=== PATIENT | male | born 1995 | race Caucasian/White ===

== ENCOUNTER 2016-05-18 15:34 | Emergency (ER) | payer BC ==
--- NOTE | 2016-05-18 16:11 | Emergency Department Record ---
History of Present Illness - General Chief Complaint: Abdominal Pain Stated Complaint: left abd pain Time Seen by Provider: 05/18/16 16:10 Source: Patient Mode of Arrival: Ambulatory Limitations: No limitations - History of Present Illness Initial Comments: The patient is here due to a one day hx of L sided AP. The pain is sharp and stabbing and mostly constant. He has had some mild nausea with the pain and loose stools but no vomiting. The patient is very weak and feels dehydrated. He has no hx of similar issues and no hx of abdominal surgeries. MD Complaint: Abdominal pain Onset/Timin -: Days(s) Location: L Flank, LLQ Radiation: L flank, LLQ Migration to: L Flank, LLQ Severity: Moderate Quality: Sharp Consistency: Constant Improves With: Nothing Worsens With: Nothing Associated Symptoms: Nausea - Related Data Home Medications Medication Instructions Recorded Confirmed Last Taken No Home Med [NO HOME MEDS] 06/19/15 05/18/16 Unknown Omeprazole 20 mg PO QD cap 10/15/15 05/18/16 05/18/16 Allergies Allergy/AdvReac Type Severity Reaction Status Date / Time No Known Drug Allergies Allergy Unknown Verified 05/18/16 16:06 [NO KNOWN DRUG ALLERGIES] Travel Screening - Travel/Exposure Within Last 30 Days Have you traveled within the last 30 days?: No Review of Systems Constitutional: Denies: Chills, Fever Eyes: Denies: Eye discharge ENT: Denies: Congestion Respiratory: Denies: Cough, Dyspnea Cardiovascular: Denies: Arrhythmia, Chest pain Past Medical History - SOCIAL HISTORY Smoking Status: Never smoker Alcohol Use: None Drug Use: None - RESPIRATORY Hx Respiratory Disorders: No - CARDIOVASCULAR Hx Cardio Disorders: No - NEURO Hx Neuro Disorders: No - GI Hx GI Disorders: Yes Hx Reflux: Yes - Hx Genitourinary Disorders: No - ENDOCRINE Hx Endocrine Disorders: No - MUSCULOSKELETAL Hx Musculoskeletal Disorders: No - PSYCH Hx Psych Problems: No - HEMATOLOGY/ONCOLOGY Hx Hematology/Oncology Disorders: No Family Medical History Any Significant Family History?: No Physical Exam - General General Appearance: Alert, Oriented x3, Cooperative, No acute distress - Head Head exam: Atraumatic, Normocephalic, Normal inspection - Eye Eye exam: Normal appearance, PERRL - Neck Neck exam: Normal inspection, Full ROM. negative: Tenderness - Respiratory Respiratory exam: Normal lung sounds bilaterally. negative: Respiratory distress - Cardiovascular Cardiovascular Exam: Regular rate, Normal rhythm, Normal heart sounds - GI/Abdominal GI/Abdominal exam: Soft, Tenderness (The abdomen is very soft with mild L sided upper and lower abdominal tenderness.). negative: Rebound, Rigid - exam: Circumcision. negative: Scrotal swelling, Testicular tenderness - Neurological Neurological exam: Normal gait. negative: Abnormal gait Course Vital Signs 05/18/16 15:42 Temperature 97.5 F L Pulse Rate [ 43 L Pulse Ox Probe] Respiratory 12 Rate Blood Pressure 112/66 [Left Arm] Pulse Ox 100 - Reevaluation(s) Reevaluation #1: The patient is resting comfortably at this time and denies any new issues. 05/18/16 17:42 Reevaluation #2: The patient is doing better at this time and his pain has mostly resolved. He denies any nausea or vomiting. On exam his abdomen is very soft with very minimal tenderness to the L mid abdomen. I did discuss the issues with the patient and felt his pain is most likely from constipation. He will bet a bottle of Mg Citrate for home and will return to the ER if not better tomorrow or sooner if worse. 05/18/16 18:25 Reevaluation #3: I did also discuss the patient's relative bradycardia and he states that is normal for him. I did stand the patient up and his HR did increase to 60 beats a minute. He states his HR is always low and I did confirm that with his old records. 05/18/16 18:29 Medical Decision Making - Data Complexity MDM Data: Labs Ordered and/or Reviewed, X-Ray Ordered and/or Reviewed - Lab Data Result diagrams: 05/18/16 16:32 05/18/16 16:32 - Radiology Data Radiology results: Report reviewed (AXR: Significant Constipation O/W neg.) Disposition Disposition: Discharge Clinical Impression: Abdominal pain in male Disposition: Home, Self-Care Condition: (1) Good Instructions: Constipation (ED), Abdominal Pain (ED) Additional Instructions: Please use Tylenol for pain and take 1/2 the bottle of Mg Citrate tonight and 1/ 2 tomorrow morning. Please see your PCP this week for recheck if needed. Please return to the ER for any persistent or increased pain, fever, or vomiting. Forms: Patient Portal Access Time of Disposition: 18:28
[2016-05-18] MEDS ORDERED: 0.9 % SODIUM CHLORIDE 1,000 ML BAG IV ONE ×2 (16:15→17:34)
[2016-05-18 16:48] LABS: BASO % 0.4 % (0-6); EOS % 7.6 % (0-6); GRAN % 55.4 % (47-80); HEMATOCRIT 38.2 % (42.0-52.0); HEMOGLOBIN 13.1 gm/dl (14.0-18.0); LYMPH % 31.2 % (16-45); MEAN CELL VOLUME 91.6 fl (81-97); MEAN CORPUSCULAR HEMOGLOBIN 31.4 pg (27-33); MEAN CORPUSCULAR HGB CONC 34.3 g/dl (32-36); MONO % 5.4 % (0-9); PLATELET COUNT 193 K/uL (130-400); RED BLOOD COUNT 4.17 M/uL (4.40-5.70); RED CELL DISTRIBUTION WIDTH 12.4 % (11.5-14.5); WHITE BLOOD COUNT W/O DIFF 7.7 K/uL (4.2-12.2)
[2016-05-18 16:59] LABS: ALBUMIN 4.4 gm/dL (3.5-5.0); ALKALINE PHOSPHATASE 80 U/L (38-126); ALT/SGPT 38 U/L (21-72); ANION GAP 15.6 (7-16); AST/SGOT 39 U/L (17-59); BILIRUBIN,TOTAL 0.46 mg/dL (0.2-1.3); BLOOD UREA NITROGEN 15 mg/dL (9-20); CARBON DIOXIDE 24.4 mmol/L (22-30); CREATININE 0.7 mg/dL (0.66-1.25); EST GLOMERULAR FILTRATION RATE > 60 ml/min; GLUCOSE,RANDOM 84 mg/dL (70-110); LIPASE 248 U/L (23-300); TOTAL PROTEIN 7.1 gm/dL (6.3-8.2)
[2016-05-18] MEDS ORDERED: KETOROLAC 30 MG/ML VIAL IVP ONE (17:20)
[2016-05-18 18:10] LABS: URINE APPEARANCE CLEAR; URINE BILIRUBIN NEGATIVE (NEGATIVE); URINE BLOOD NEGATIVE (NEGATIVE); URINE COLOR YELLOW; URINE GLUCOSE (UA) NEGATIVE (NEGATIVE); URINE KETONE NEGATIVE (NEGATIVE); URINE LEUKOCYTE ESTERASE NEGATIVE (NEGATIVE); URINE NITRITE NEGATIVE (NEGATIVE); URINE PROTEIN NEGATIVE (NEGATIVE); URINE UROBILINOGEN 0.2 E.U./dL (0.20 - 1.00)
[2016-05-18] MEDS ORDERED: MAGNESIUM CITRATE 296 ML BTL PO ONE (18:28)
--- NOTE | 2016-05-21 07:32 | RADIOLOGY REPORT ---
EXAM: ABDOMEN, TWO VIEWS HISTORY: LEFT UPPER QUADRANT ABDOMINAL PAIN FOR TWO DAYS. TECHNIQUE: Two views of the abdomen were obtained. Comparison: None. FINDINGS: No free air. Abundant fecal material throughout the colon. Paucity of small bowel gas. No suspicious calcification. IMPRESSION: CONSTIPATION. JOB NUMBER: [id number] MTDD
[2016-05-21] MEDS ORDERED: DICYCLOMINE HCL 10 MG CAPSULE PO ONE (08:05)
== END 2016-05-18 18:37 | disposition home or self-care (01) ==
LOC: ER 15:34
DX: R10.32 Left lower quadrant pain (principal); R11.0 Nausea; R19.7 Diarrhea, unspecified; K59.00 Constipation, unspecified
CPT/HCPCS: 99284 ×2; 96374; 96361; 83690; 85025; 80076; 80048; 81003; 74000; J1885; 96360; 96375; J7030

== ENCOUNTER 2016-05-21 01:04 | Observation (INO) | payer BC ==
[2016-05-21] MEDS ORDERED: ONDANSETRON 4 MG ODT TABLET SL ONE (01:32)
[2016-05-21] MEDS ORDERED: HYOSCYAMINE SULFATE ODT 0.125 MG TAB.SUBL SL ONE (01:32)
--- NOTE | 2016-05-21 01:39 | Emergency Department Record ---
History of Present Illness - General Chief Complaint: Abdominal Pain Stated Complaint: ABDOMINAL PAIN Time Seen by Provider: 05/21/16 01:31 Source: Patient Mode of Arrival: Ambulatory Limitations: No limitations - History of Present Illness Initial Comments: 21 yo male returns to ED with worsening abdominal pain symptoms described as "cramping". Patient reports that he was diagnosed with constipation 2 days ago , given prescription for magnesium citrate which produced 2-3 BMs at home. Patient reports taking the "other half" of the bottle which did not result in any further bowel movements, but resulted in abdominal cramping tonight. Patient denies health problems at his baseline. Patient denies fevers, chills, or recent illness. MD Complaint: Abdominal pain Onset/Timin -: Days(s) Location: Diffuse, LLQ Radiation: Back Quality: Cramping Consistency: Intermittent Improves With: Bowel movement Worsens With: Nothing Associated Symptoms: Nausea - Related Data Home Medications Medication Instructions Recorded Confirmed Last Taken Omeprazole 40 mg PO QD cap 10/15/15 05/21/16 05/18/16 Allergies Allergy/AdvReac Type Severity Reaction Status Date / Time No Known Drug Allergies Allergy Unknown Verified 05/18/16 16:06 [NO KNOWN DRUG ALLERGIES] Travel Screening - Travel/Exposure Within Last 30 Days Have you traveled within the last 30 days?: No - Travel Symptoms Symptom Screening: None Review of Systems Constitutional: Denies: Chills, Fever, Malaise, Night sweats Eyes: Denies: Eye discharge, Eye pain ENT: Denies: Congestion, Ear pain, Epistaxis Respiratory: Denies: Cough, Dyspnea Cardiovascular: Denies: Chest pain, Dyspnea on exertion Endocrine: Denies: Fatigue, Heat or cold intolerance Gastrointestinal: Reports: Abdominal pain, Constipation, Nausea. Denies: Vomiting Genitourinary: Denies: Incontinence, Retention Musculoskeletal: Denies: Arthralgia, Back pain, Gout, Joint swelling Skin: Denies: Bruising, Change in color Neurological: Denies: Abnormal gait, Confusion, Headache, Seizure Psychiatric: Denies: Anxiety Hematological/Lymphatic: Denies: Anemia, Blood Clots Past Medical History - SOCIAL HISTORY Smoking Status: Never smoker - RESPIRATORY Hx Respiratory Disorders: Yes Hx Asthma: Yes (mostly as child) - CARDIOVASCULAR Hx Cardio Disorders: No - NEURO Hx Neuro Disorders: No - GI Hx GI Disorders: Yes Hx Reflux: Yes - Hx Genitourinary Disorders: No - ENDOCRINE Hx Endocrine Disorders: No - MUSCULOSKELETAL Hx Musculoskeletal Disorders: No - PSYCH Hx Psych Problems: No - HEMATOLOGY/ONCOLOGY Hx Hematology/Oncology Disorders: No Family Medical History Any Significant Family History?: Yes Hx Cancer: Grandparents Hx Heart Disease: Grandparents Hx HTN: Mother, Grandparents Hx Stroke: Brother/Sister, Grandparents *Stroke Comment: Aunt Physical Exam - General General Appearance: Alert, Oriented x3, Cooperative, Mild distress Limitations: No limitations - Head Head exam: Atraumatic, Normocephalic, Normal inspection Head exam detail: negative: Abrasion, Contusion, Dupont's sign, General tenderness, Hematoma, Laceration - Eye Eye exam: Normal appearance. negative: Conjunctival injection, Periorbital swelling, Periorbital tenderness, Scleral icterus - ENT Ear exam: negative: Auricular hematoma, Auricular trauma Nasal Exam: negative: Active bleeding, Discharge, Dried blood, Foreign body Mouth exam: negative: Drooling, Laceration, Muffled voice, Tongue elevation - Neck Neck exam: Normal inspection. negative: Meningismus, Tenderness - Respiratory Respiratory exam: Normal lung sounds bilaterally. negative: Respiratory distress, Rhonchi, Stridor, Wheezes - Cardiovascular Cardiovascular Exam: Normal rhythm, Normal heart sounds, Bradycardia, Other ( chronic bradycardia per patient and family) - GI/Abdominal GI/Abdominal exam: Soft. negative: Pulsatile mass, Rebound, Rigid, Tenderness - Rectal Rectal exam: Deferred - exam: Deferred - Extremities Extremities exam: Normal inspection. negative: Calf tenderness, Pedal edema, Tenderness - Back Back exam: Reports: Normal inspection. Denies: CVA tenderness (R), CVA tenderness (L) - Neurological Neurological exam: Alert, Normal gait, Oriented X3 - Psychiatric Psychiatric exam: Normal affect, Normal mood - Skin Skin exam: Normal color. negative: Abrasion Type of lesion: negative: abrasion Course Vital Signs 05/21/16 01:10 Temperature 97.7 F Pulse Rate [ 38 L Pulse Ox Probe] Respiratory 20 Rate Blood Pressure 126/78 [Left Arm] Pulse Ox 98 - Reevaluation(s) Reevaluation #1: 05/21/16 01:37 Labs reviewed from visit 05/18/16, no acute process. Abdominal film 05/18/16: Findings c/w constipation. CT imaging ordered to exclude other acute processes, Zofran and Levsin given for symptomatic cramping. Reevaluation #2: 05/21/16 03:17 CT Abdomen and Pelvis: No acute process Patient reassessed following Levsin, Zofran, and Toradol, reports that he has had no relief of his pain/cramping symptoms. Will administer Valium in the ED and admit for intractable abdominal pain for observation and further evaluation. Disposition Disposition: Admit Clinical Impression: Abdominal pain in male Disposition: Still a Patient at [facility] Decision to Admit: Admit from ER Decision to Admit Date: 05/21/16 Decision to Admit Time: 03:19 Condition: (2) Stable Forms: Patient Portal Access
[2016-05-21] MEDS ORDERED: 0.9 % SODIUM CHLORIDE 1000ML 1,000 ML IV SCH (01:45)
[2016-05-21] MEDS ORDERED: ONDANSETRON HCL IV 4 MG/2 ML VIAL IVP ONE (01:56)
[2016-05-21] MEDS ORDERED: KETOROLAC 30 MG/ML VIAL IVP ONE (02:40)
[2016-05-21] MEDS ORDERED: DIAZEPAM 5 MG/1 ML TUBX IVP ONE (03:17)
[2016-05-21] MEDS ORDERED: Non-Formulary MISC (Omeprazole [Omeprazole] 40 MG) PO SCH (03:40)
[2016-05-21] MEDS ORDERED: HYOSCYAMINE SULFATE ODT 0.125 MG TAB.SUBL SL PRN (03:40)
[2016-05-21] MEDS ORDERED: ONDANSETRON HCL IV 4 MG/2 ML VIAL IVP PRN (03:40)
[2016-05-21] MEDS ORDERED: 0.9 % SODIUM CHLORIDE 1000ML 1,000 ML IV PRN (03:40)
[2016-05-21] MEDS ORDERED: DIAZEPAM 5 MG/1 ML TUBX IVP PRN (03:40)
[2016-05-21] MEDS ORDERED: FLU VAC QS 2016-17 (INPT, 3YR+) 60MCG/0.5ML IM ONE (04:04)
[2016-05-21] MEDS ORDERED: PANTOPRAZOLE SODIUM 40 MG TABLET PO SCH (07:00)
[2016-05-21 08:18] LABS: URINE APPEARANCE CLEAR; URINE BILIRUBIN NEGATIVE (NEGATIVE); URINE BLOOD NEGATIVE (NEGATIVE); URINE COLOR YELLOW; URINE GLUCOSE (UA) NEGATIVE (NEGATIVE); URINE KETONE NEGATIVE (NEGATIVE); URINE LEUKOCYTE ESTERASE NEGATIVE (NEGATIVE); URINE NITRITE NEGATIVE (NEGATIVE); URINE PROTEIN NEGATIVE (NEGATIVE); URINE UROBILINOGEN 0.2 E.U./dL (0.20 - 1.00)
[2016-05-21 08:22] LABS: BARBITURATE SCREEN URINE NOT DETECTED; TRICYCLIC ANTIDEPRESSANT SCRN NOT DETECTED
[2016-05-21 08:23] LABS: AMPHETAMINE SCREEN URINE NOT DETECTED; BENZODIAZEPINE SCREEN URINE NOT DETECTED; COCAINE SCREEN URINE NOT DETECTED; METHADONE SCREEN URINE NOT DETECTED; METHAMPHETAMINE SCREEN NOT DETECTED; OPIATE SCREEN URINE NOT DETECTED; OXYCODONE SCREEN URINE NOT DETECTED; PHENCYCLIDINE SCREEN URINE NOT DETECTED; PROPOXYPHENE SCREEN URINE NOT DETECTED; THC SCREEN URINE NOT DETECTED
[2016-05-21] MEDS ORDERED: DICYCLOMINE HCL 10 MG CAPSULE PO ONE (08:31)
[2016-05-21 08:50] LABS: BASO % 0.6 % (0-6); EOS % 8.1 % (0-6); GRAN % 48.5 % (47-80); HEMATOCRIT 35.3 % (42.0-52.0); HEMOGLOBIN 12.3 gm/dl (14.0-18.0); LYMPH % 37.6 % (16-45); MEAN CELL VOLUME 91.5 fl (81-97); MEAN CORPUSCULAR HGB CONC 34.8 g/dl (32-36); MEAN PLATELET VOLUME 11.1 fl (7.4-10.4); MONO % 5.2 % (0-9); PLATELET COUNT 173 K/uL (130-400); RED BLOOD COUNT 3.86 M/uL (4.40-5.70); WHITE BLOOD COUNT W/O DIFF 5.4 K/uL (4.2-12.2)
[2016-05-21 08:51] LABS: MEAN CORPUSCULAR HEMOGLOBIN 31.8 pg (27-33)
--- NOTE | 2016-05-21 09:26 | Discharge Note ---
Discharge Note - Date Date of Discharge Note: 05/21/16 Disposition: Home, Self-Care Condition: (2) Stable Additional Instructions: follow up with Dr. Musa tomorrow as scheduled [place] diet Bananas rice applesauce rice and toast and crackers increase water to 8 glasses per day off work today and tomorrow Prescriptions: Dicyclomine HCl [Bentyl] 10 mg PO Q8H #20 cap Polyethylene Glycol 3350 [Miralax] 17 gm PO DAILY #1 bottle Forms: Patient Portal Access Activity at Discharge: Increase Activity as Tolerated
[2016-05-21] MEDS ORDERED: POLYETHYLENE GLY 17 GM PACKET PO SCH (10:00)
--- NOTE | 2016-05-21 10:31 | History and Physical Report ---
DATE OF DICTATION: 05/21/2016 at 8:15 a.m. CHIEF COMPLAINT: Abdominal pain, left lower quadrant. HISTORY OF PRESENT ILLNESS: This 21-year-old male presented. He states that he had recurrent abdominal pain, left lower quadrant. He was seen twice in the emergency department; first by Dr. Mack who diagnosed him with constipation. This was seen by x-ray and he was given citrate and mag, a half bottle. He had three or four bowel movements. He then took the other half of the bottle because he thought he was still having some discomfort. He had more cramping and came to the emergency room. He was evaluated by Dr. Chou and was admitted to the hospital for observation with intractable abdominal pain. At my evaluation at 7:30 a.m. he was sleeping. When I woke him up, he stated he did have left lower quadrant abdominal pain. His abdomen was soft and nontender on palpation, but the pain is present. His pain is in the left lower quadrant. No rigidity, no guarding, no rebound. He also mentioned that when he smoked marijuana his abdominal pain got better. The patient's primary physician is Dr. Wil Méndez. He has an appointment tomorrow with Dr. Méndez. He has a GI appointment with Dr. Matute in two weeks. PAST MEDICAL HISTORY: Negative. PAST SURGICAL HISTORY: Tonsillectomy and adenoidectomy. SOCIAL HISTORY: The patient is under a bit of stress because he is a little bit paranoid. His brother five years ago when he was 21 years old, and he currently is 21 years old. He stated his brother from a stroke. The patient was 16 years old when his brother . The anniversary of the of his brother was May 09. MEDICATIONS ON ADMISSION: Omeprazole 40 mg once a day. ALLERGIES: No known drug allergies. FAMILY/PSYCHOSOCIAL HISTORY: He smokes marijuana three or four times a week. He does not smoke cigarettes. No alcohol or illegal drug use. No significant family history. REVIEW OF SYSTEMS: HEENT: No upper respiratory infection symptoms, cough, cold, or congestion. Cardiovascular: No chest pain, palpitations, or arrhythmias. He does have a bradycardia. He has a history of bradycardia, and this has been documented in the chart. Respiratory: No cough, cold, or congestion. Gastrointestinal: See Chief Complaint. He has no vomiting and no diarrhea. However, he did have three or four bowel movements after using citrate of mag. No blood in the stools. No melanoma or hematochezia. No dysphagia. Genitourinary: No dysuria, hematuria, frequency, or burning on urination. Musculoskeletal: No joint or bone abnormalities. He does have some chronic back pain. 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 However, he also lifts weights, and he was lifting weights the last time he strained his back which was about three or four days ago at the gym. Neurologic: No cerebrovascular accident, paralysis, or paraesthesias. No loss of balance. Endocrine: No diabetes or thyroid disease. Integument: No rash, ulcers, changing moles, or yellow skin. PHYSICAL EXAMINATION: General: Height is 6 feet, 4 inches. Weight is 203 pounds. His BMI is 24. Vital Signs: Temperature is 97.9, pulse is 35, 34, 40. When he gets up, it goes up to 60. Blood pressure is 108/52, respiratory rate is 14, pulse oximetry is 98% on room air. HEENT: Pupils are equal, round, and reactive to light and accommodation. Extraocular muscles are intact. The throat is clear. The nose is clear. The tympanic membranes are [place]. Neck: The neck is supple. No jugular venous distension. No hepatojugular reflex. No carotid bruit. The thyroid is smooth. Cardiovascular: Regular rate and rhythm without murmurs, clicks, rubs, or gallops. Bradycardia is present. Respiratory: Clear to auscultation and percussion. Abdomen: Soft and nontender. No hepatosplenomegaly. No masses. No tenderness. Bowel sounds are active. Extremities: No pitting edema. No cyanosis. No clubbing. Full range of motion. Peripheral pulses are good. Breasts: Normal male breasts. Rectal Examination: Deferred. Genitalia: Normal male genitalia. Neurological Examination: Cranial nerves II through XII are intact. No gross defect. Sensation is normal. Strength is normal. Deep tendon reflexes are equal bilaterally. Babinski is negative. Mental Status: Alert and oriented times three. IMPRESSIONS: 1. Left lower quadrant abdominal pain; rule out irritable bowel syndrome. 2. Stress and anxiety from his brother having five years ago; anniversary date May 09. 3. Cramping from citrate of mag. 4. Bradycardia by history; rate is around 35. 5. Possible viral etiology for his abdominal pain. PLAN: Complete blood count, urinalysis, urine drug screen. Bentyl 10 mg p.o. The patient has an appointment with Dr. Méndez tomorrow and also with GI, Dr. Matute, in two weeks. Kel Navarrete D.O. Date Time JOB NUMBER: [id number] MTDD
--- NOTE | 2016-05-22 07:19 | CT SCAN REPORT ---
EXAM: ABDOMEN AND PELVIS CT WITH IV CONTRAST HISTORY: ACUTE LEFT LOWER QUADRANT ABDOMINAL PAIN FOR TWO DAYS. TECHNIQUE: Contiguous axial images from the lung bases to the symphysis pubis were obtained after the uneventful intravenous administration of 100 ml of Omnipaque 300. Oral contrast was also utilized. Comparison: Abdomen and pelvis CT 06/19/15. FINDINGS: The lung bases are clear. The liver, spleen, kidneys, adrenals, pancreas and gallbladder are normal. The visualized loops of small and large bowel are of normal caliber with no bowel wall thickening. Normal appendix. Moderate fecal material throughout the colon. No diverticulitis. No free intraperitoneal fluid or adenopathy. No lytic or blastic osseous lesion. IMPRESSION: NO ACUTE PROCESS OF THE ABDOMEN OR PELVIS. JOB NUMBER: [id number] [facility]
== END 2016-05-21 10:05 | disposition home or self-care (01) ==
LOC: ER 01:04 → MEDSURG 03:34
PROVIDERS: ADMIT Emergency Medicine; ATTEND Emergency Medicine
DX: R10.32 Left lower quadrant pain (principal); Z79.899 Other long term (current) drug therapy
CPT/HCPCS: 85025; 81003; 74177; 93005; 93010; G0378; G0477; Q9967; J1980; J1885; J2405; 96361; 96374; 96375; 99236; 99285; J3360; J7030

== ENCOUNTER 2016-10-12 15:07 | Emergency (ER) | payer BC ==
--- NOTE | 2016-10-12 16:13 | Emergency Department Record ---
History of Present Illness - General Chief complaint: Head Injury Stated complaint: HEAD INJURY Time Seen by Provider: 10/12/16 16:06 Source: Patient Mode of Arrival: Ambulatory - History of Present Illness Initial comments: Patient was drinking last night and not drinking water and using marijania and he felt lightheaded and he passed out when he was at his friends house and he had warning symptoms of tunneling down. No chest pain or dyspnea and he states he has a history of a slow heart rate all his life and his pulse now is 50. Onset/Timin -: Hour(s) Location: Occipital Loss of Consciousness: Yes, Second(s) Previous Trauma to this Area: No Place: Other Radiation: Neck, Other Severity scale (1-10): 6 Quality: Sharp Consistency: Constant Provoking factors: Other Associated Symptoms: Neck pain, Vision changes - Related Data Home Medications Medication Instructions Recorded Confirmed Last Taken Omeprazole 1 tab PO DAILY #30 09/01/16 10/12/16 10/11/16 Allergies/Adverse reactions: Allergies Allergy/AdvReac Type Severity Reaction Status Date / Time No Known Drug Allergies Allergy Unknown Unverified 10/12/16 15:39 [NO KNOWN DRUG ALLERGIES] gluten Allergy hives Unverified 10/12/16 15:39 nut - unspecified Allergy hives Unverified 10/12/16 15:39 soy Allergy hives Unverified 10/12/16 15:39 Travel Screening - Travel/Exposure Within Last 30 Days Have you traveled within the last 30 days?: No - Travel/Exposure Within Last Year Have you traveled outside the [place] in the last year?: No - Additonal Travel Details Have you been exposed to anyone with a communicable illness?: No - Travel Symptoms Symptom Screening: None Review of Systems Reviewed: No additional complaints except as noted below Constitutional: Reports: As per HPI. Denies: Chills, Fever, Malaise, Night sweats, Weakness, Weight change Eyes: Reports: As per HPI. Denies: Eye discharge, Eye pain, Photophobia, Vision change ENT: Reports: As per HPI. Denies: Congestion, Dental pain, Ear pain, Epistaxis , Hearing loss, Throat pain Respiratory: Reports: As per HPI. Denies: Cough, Dyspnea, Hemoptysis, Stridor, Wheezes Cardiovascular: Reports: As per HPI, Syncope. Denies: Arrhythmia, Chest pain, Dyspnea on exertion, Edema, Murmurs, Orthopnea, Palpitations, Paroxysmal nocturnal dyspnea, Rheumatic Fever Endocrine: Reports: As per HPI. Denies: Fatigue, Heat or cold intolerance, Polydipsia, Polyuria Gastrointestinal: Reports: As per HPI. Denies: Abdominal pain, Constipation, Diarrhea, Hematemesis, Hematochezia, Melena, Nausea, Vomiting Genitourinary: Reports: As per HPI. Denies: Dysuria, Frequency, Hematuria, Incontinence, Retention, Testicular pain, Testicular mass, Urgency Musculoskeletal: Reports: As per HPI. Denies: Arthralgia, Back pain, Gout, Joint swelling, Myalgia, Neck pain Skin: Reports: As per HPI. Denies: Bruising, Change in color, Change in hair/ nails, Lesions, Pruritus, Rash Neurological: Reports: As per HPI. Denies: Abnormal gait, Confusion, Headache, Numbness, Paresthesias, Seizure, Tingling, Tremors, Vertigo, Weakness Psychiatric: Reports: As per HPI. Denies: Anxiety, Auditory hallucinations, Depression, Homicidal thoughts, Suicidal thoughts, Visual hallucinations Hematological/Lymphatic: Reports: As per HPI. Denies: Anemia, Blood Clots, Easy bleeding, Easy bruising, Swollen glands Past Medical History - SOCIAL HISTORY Smoking Status: Never smoker Alcohol Use: Heavy Drug Use: None - RESPIRATORY Hx Respiratory Disorders: Yes Hx Asthma: Yes (mostly as child) - CARDIOVASCULAR Hx Cardio Disorders: No Comment:: Bradycardic in 30 to 40's - NEURO Hx Neuro Disorders: Yes - GI Hx GI Disorders: Yes Hx Celiac Disease: Yes (Gluten intolerance) Hx Reflux: Yes - Hx Genitourinary Disorders: No - ENDOCRINE Hx Endocrine Disorders: No - MUSCULOSKELETAL Hx Musculoskeletal Disorders: No - PSYCH Hx Psych Problems: No - HEMATOLOGY/ONCOLOGY Hx Hematology/Oncology Disorders: No Family Medical History Any Significant Family History?: No Family Hx Comment (NOT TO BE USED IN PLACE OF ITEMS BELOW): Aunt- due to cerebral aneurysm Hx Cancer: Grandparents Hx Heart Disease: Grandparents Hx HTN: Mother, Grandparents Hx Stroke: Brother/Sister, Grandparents Physical Exam - General General Appearance: Alert, Oriented x3, Cooperative, No acute distress - Head Head exam: Normal inspection - Eye Eye exam: Normal appearance, PERRL Pupils: Normal accommodation - ENT ENT exam: Normal exam, Mucous membranes moist, Normal external ear exam, Normal orophraynx, TM's normal bilaterally Ear exam: Normal external inspection. negative: External canal tenderness Nasal Exam: Normal inspection. negative: Discharge, Sinus tenderness Mouth exam: Normal external inspection, Tongue normal Teeth exam: Normal inspection. negative: Dental caries Throat exam: Normal inspection. negative: Tonsillar erythema, Tonsillar exudate - Neck Neck exam: Normal inspection, Full ROM. negative: Tenderness - Respiratory Respiratory exam: Normal lung sounds bilaterally. negative: Respiratory distress - Cardiovascular Cardiovascular Exam: Regular rate, Normal rhythm, Normal heart sounds - GI/Abdominal GI/Abdominal exam: Soft, Normal bowel sounds. negative: Tenderness - Rectal Rectal exam: Deferred - exam: Deferred - Extremities Extremities exam: Normal inspection, Full ROM, Normal capillary refill. negative: Tenderness - Back Back exam: Reports: Normal inspection, Full ROM. Denies: Muscle spasm, Rash noted, Tenderness - Neurological Neurological exam: Alert, Normal gait, Oriented X3, Reflexes normal - Psychiatric Psychiatric exam: Normal affect, Normal mood - Skin Skin exam: Dry, Intact, Normal color, Warm Course Vital Signs 10/12/16 15:19 Temperature 97.8 F Pulse Rate [ 93 H Pulse Ox Probe] Respiratory 23 Rate Blood Pressure 127/77 [Left Arm] Pulse Ox 97 Medical Decision Making - Data Complexity MDM Data: Labs Ordered and/or Reviewed, X-Ray Ordered and/or Reviewed (ct of head and neck neg.), EKG Ordered and/or Reviewed (sinus emmanuel similiaR to 05/2016 , No acute changes) - Lab Data Result diagrams: 10/12/16 16:25 10/12/16 16:25 Disposition Clinical Impression: Vasovagal syncope, Dehydration Disposition: Home, Self-Care Condition: (1) Good Instructions: Dehydration (ED), Syncope (ED) Additional Instructions: drink lots of fluid No alcohol or marijania. follow up with family in 4 days Forms: Patient Portal Access Time of Disposition: 17:52
[2016-10-12] MEDS ORDERED: 0.9 % SODIUM CHLORIDE 1000ML 1,000 ML IV SCH (16:30)
[2016-10-12 16:47] LABS: BASO % 0.7 % (0-6); GRAN % 56.8 % (47-80); HEMATOCRIT 41.9 % (42.0-52.0); HEMOGLOBIN 14.2 gm/dl (14.0-18.0); LYMPH % 28.2 % (16-45); MEAN CELL VOLUME 89.9 fl (81-97); MEAN CORPUSCULAR HEMOGLOBIN 30.5 pg (27-33); MEAN CORPUSCULAR HGB CONC 33.9 g/dl (32-36); MEAN PLATELET VOLUME 11.2 fl (7.4-10.4); MONO % 6.3 % (0-9); PLATELET COUNT 245 K/uL (130-400); RED BLOOD COUNT 4.66 M/uL (4.40-5.70); RED CELL DISTRIBUTION WIDTH 12.7 % (11.5-14.5); WHITE BLOOD COUNT W/O DIFF 7.3 K/uL (4.2-12.2)
[2016-10-12 16:58] LABS: ANION GAP 10.7 (7-16); BLOOD UREA NITROGEN 14 mg/dL (9-20); CARBON DIOXIDE 28.3 mmol/L (22-30); CREATININE 0.9 mg/dL (0.66-1.25); EST GLOMERULAR FILTRATION RATE > 60 ml/min; GLUCOSE,RANDOM 75 mg/dL (70-110)
[2016-10-12 17:13] LABS: URINE APPEARANCE CLEAR; URINE BILIRUBIN NEGATIVE (NEGATIVE); URINE BLOOD NEGATIVE (NEGATIVE); URINE COLOR YELLOW; URINE GLUCOSE (UA) NEGATIVE (NEGATIVE); URINE KETONE NEGATIVE (NEGATIVE); URINE LEUKOCYTE ESTERASE NEGATIVE (NEGATIVE); URINE NITRITE NEGATIVE (NEGATIVE); URINE PROTEIN NEGATIVE (NEGATIVE); URINE UROBILINOGEN 0.2 E.U./dL (0.20 - 1.00)
[2016-10-12 17:18] LABS: AMPHETAMINE SCREEN URINE NOT DETECTED; BARBITURATE SCREEN URINE NOT DETECTED; BENZODIAZEPINE SCREEN URINE NOT DETECTED; COCAINE SCREEN URINE NOT DETECTED; METHADONE SCREEN URINE NOT DETECTED; METHAMPHETAMINE SCREEN NOT DETECTED; OPIATE SCREEN URINE NOT DETECTED; OXYCODONE SCREEN URINE NOT DETECTED; PHENCYCLIDINE SCREEN URINE NOT DETECTED; PROPOXYPHENE SCREEN URINE NOT DETECTED; THC SCREEN URINE DETECTED; TRICYCLIC ANTIDEPRESSANT SCRN NOT DETECTED
--- NOTE | 2016-10-14 08:44 | CT SCAN REPORT ---
EXAM: EMERGENCY HEAD CT HISTORY: HIT BACK OF HIS HEAD TODAY AND VISION WENT BLURRY. TECHNIQUE: Axial CT scan of the head was performed without IV contrast. Comparison: Head CT dated 03/26/15. Encounter: Initial. FINDINGS: No definite acute intracranial hemorrhage identified. No focal mass effect or midline shift apparent. No definite acute infarct or intracranial mass lesion seen. No depressed calvarial fracture is evident. IMPRESSION: EMERGENCY NONCONTRAST HEAD CT APPEARS NEGATIVE WITH NO DEFINITE ACUTE INTRACRANIAL HEMORRHAGE OR FOCAL MASS EFFECT IDENTIFIED. JOB [facility]BER: [id number] [facility]
--- NOTE | 2016-10-14 09:16 | CT SCAN REPORT ---
EXAM: CERVICAL SPINE CT WITHOUT CONTRAST HISTORY: HEAD TRAUMA, NECK PAIN. TECHNIQUE: Axial CT scan of the entire cervical spine was performed without IV contrast. Comparison: Cervical CT dated 03/26/15. Encounter: Initial. FINDINGS: No apical pneumothorax is evident. No definite fracture of the cervical spine identified. No prevertebral soft tissue swelling is evident. The cervical intervertebral disk spaces are maintained. IMPRESSION: EMERGENCY CT SCAN OF THE CERVICAL SPINE APPEARS NEGATIVE WITH NO DEFINITE FRACTURE OR PREVERTEBRAL SOFT TISSUE SWELLING EVIDENT. JOB NUMBER: [id number] [facility]
== END 2016-10-12 18:18 | disposition home or self-care (01) ==
LOC: ER 15:07
DX: S09.90XA Unspecified injury of head, initial encounter (principal); R55 Syncope and collapse; E86.0 Dehydration; M54.2 Cervicalgia; H53.8 Other visual disturbances; W19.XXXA Unspecified fall, initial encounter; Z79.899 Other long term (current) drug therapy
CPT/HCPCS: 99284 ×2; 96360; 96361; 85025; 80048; 81003; 80305; 72125; 70450; 93005; 93010; G0480; 80320; J7030

== ENCOUNTER 2017-12-16 14:44 | Emergency (ER) | payer BC ==
[2017-12-16] MEDS ORDERED: 0.9 % SODIUM CHLORIDE 1,000 ML BAG IV ONE ×2 (15:08→16:03)
[2017-12-16] MEDS ORDERED: ONDANSETRON HCL IV 4 MG/2 ML VIAL IVP ONE (15:11)
--- NOTE | 2017-12-16 15:15 | Emergency Department Record ---
History of Present Illness - General Chief Complaint: Abdominal Pain Stated Complaint: ABDOMINAL PAIN/IBS/CANT EAT Time Seen by Provider: 12/16/17 14:51 Source: Patient Mode of Arrival: Ambulatory Limitations: No limitations - History of Present Illness Initial Comments: The patient is here due to worsening of his chronic AP. The pain is crampy and all over but worse in the upper abdomen. Sometimes eating makes it worse. The patient has had this problem for years and it is intermittent. He has had multiple ER visits for it and did have a neg Abd CT last year. The patient also has had 3 EGD's and has been diagnosed with IBS, Gluten intolerance and EOE. There has been no hx of vomiting, fever, dysuria, or CP but he has had mild loose stools. MD Complaint: Abdominal pain Onset/Timin -: Week(s) Location: Epigastric Severity: Moderate Severity scale (1-10): 6 Quality: Cramping Consistency: Intermittent Improves With: Rest, Other Worsens With: Eating Associated Symptoms: Denies other symptoms - Related Data Home Medications Medication Instructions Recorded Confirmed Last Taken Fluticasone Propionate [Flovent 1 puff INH ASDIR 12/16/17 12/16/17 12/16/17 Hfa] Previous Rx's Medication Instructions Recorded Omeprazole 40 mg PO BID #14 capsule. 12/16/17 Allergies Allergy/AdvReac Type Severity Reaction Status Date / Time No Known Drug Allergies Allergy Unknown Verified 12/16/17 14:50 [NO KNOWN DRUG ALLERGIES] gluten Allergy hives Verified 12/16/17 14:50 nut - unspecified Allergy hives Verified 12/16/17 14:50 soy Allergy hives Verified 12/16/17 14:50 Travel Screening - Travel/Exposure Within Last 30 Days Have you traveled within the last 30 days?: No - Travel/Exposure Within Last Year Have you traveled outside the [place] in the last year?: No - Additonal Travel Details Have you been exposed to anyone with a communicable illness?: No - Travel Symptoms Symptom Screening: None Review of Systems Constitutional: Denies: Chills, Fever Eyes: Denies: Eye discharge ENT: Denies: Congestion Respiratory: Denies: Cough, Dyspnea Cardiovascular: Denies: Arrhythmia Endocrine: Reports: Fatigue Gastrointestinal: Reports: Abdominal pain, Diarrhea, Nausea. Denies: Vomiting Genitourinary: Denies: Dysuria Musculoskeletal: Denies: Arthralgia Past Medical History - SOCIAL HISTORY Smoking Status: Never smoker Alcohol Use: Rare Drug Use: Heavy Drug Use Detail:: Marijuana - RESPIRATORY Hx Respiratory Disorders: Yes Hx Asthma: Yes (mostly as child) - CARDIOVASCULAR Hx Cardio Disorders: No Comment:: Bradycardic in 30 to 40's - NEURO Hx Neuro Disorders: Yes - GI Hx GI Disorders: Yes Hx Celiac Disease: Yes (Gluten intolerance) Hx Reflux: Yes Hx Irritable Bowel: Yes - Hx Genitourinary Disorders: No - ENDOCRINE Hx Endocrine Disorders: No - MUSCULOSKELETAL Hx Musculoskeletal Disorders: No - PSYCH Hx Psych Problems: No - HEMATOLOGY/ONCOLOGY Hx Hematology/Oncology Disorders: No Family Medical History Any Significant Family History?: Yes Family Hx Comment (NOT TO BE USED IN PLACE OF ITEMS BELOW): Aunt- due to cerebral aneurysm Hx Cancer: Grandparents Hx Heart Disease: Grandparents Hx HTN: Mother, Grandparents Hx Stroke: Brother/Sister, Grandparents Physical Exam - General General Appearance: Alert, Oriented x3, Cooperative, No acute distress - Head Head exam: Atraumatic, Normocephalic, Normal inspection - Eye Eye exam: Normal appearance, PERRL - Neck Neck exam: Normal inspection, Full ROM. negative: Tenderness - Respiratory Respiratory exam: Normal lung sounds bilaterally. negative: Respiratory distress - Cardiovascular Cardiovascular Exam: Regular rate, Normal rhythm, Normal heart sounds - GI/Abdominal GI/Abdominal exam: Soft, Normal bowel sounds, Other (The abdomen is very soft and nontender in all 4 quads.). negative: Rebound, Rigid, Tenderness - Extremities Extremities exam: Normal inspection, Full ROM, Normal capillary refill. negative: Tenderness - Back Back exam: Reports: Normal inspection - Neurological Neurological exam: Alert, Normal gait. negative: Abnormal gait, Motor sensory deficit - Skin Skin exam: negative: Rash Course Vital Signs 12/16/17 14:55 Temperature 97.5 F L Pulse Rate 70 Respiratory 20 Rate Blood Pressure 125/70 Pulse Ox 97 - Reevaluation(s) Reevaluation #1: The patient states he is not doing any better and is still having some pain. There has been no vomiting or diarrhea. 12/16/17 15:30 Reevaluation #2: The patient is still complaining of pain. He appears very comfortable in no distress. I did review his EGD dated 11/18/17 and it was normal with the pathology demonstrating Eosinophilic Esophagitis. 12/16/17 16:32 Reevaluation #3: The patient is doing much better at this time. He has no nausea or vomiting and his pain has mostly resolved. I did discuss the Abd CT results and the need for F/U with GI HORACE. He is to restart the omeprazole and F/U next week as planned. 12/16/17 18:03 Medical Decision Making - Data Complexity MDM Data: Labs Ordered and/or Reviewed, X-Ray Ordered and/or Reviewed - Lab Data Result diagrams: 12/16/17 15:25 12/16/17 15:25 - Radiology Data Radiology results: Report reviewed (CT: Nonspecific portal edema with few small lymph nodes in erika hepatis. O/W neg.) Disposition Disposition: Discharge Clinical Impression: Chronic abdominal pain Disposition: Home, Self-Care Condition: (2) Stable Instructions: Chronic Abdominal Pain (ED) Additional Instructions: Please restart the Omeprazole and see your GI doctor next week as planned. Please return to the ER for any worsening symptoms. Prescriptions: Omeprazole 40 mg PO BID #14 capsule.dr Forms: Patient Portal Access Time of Disposition: 18:05 Quality - Quality Measures Quality Measures: N/A - Blood Pressure Screening View Details: Yes Does Patient Have Any of the Following: No Blood Pressure Classification: Pre-Hypertensive BP Reading Systolic Measurement: 125 Diastolic Measurement: 70 Screening for High Blood Pressure: < Pre-Hypertensive BP, F/U Documented > [ G8950] Pre-Hypertensive Follow-up Interventions: Referral to alternative/primary care provider.
[2017-12-16] MEDS ORDERED: ACETAMINOPHEN 1,000 MG/100 ML BTL IVPB ONE (15:28)
[2017-12-16 15:33] LABS: BASO % 0.1 % (0-6); EOS % 4.1 % (0-6); GRAN % 60.5 % (47-80); HEMATOCRIT 37.4 % (42.0-52.0); HEMOGLOBIN 12.8 gm/dl (14.0-18.0); LYMPH % 29.8 % (16-45); MEAN CELL VOLUME 88.8 fl (81-97); MEAN CORPUSCULAR HEMOGLOBIN 30.4 pg (27-33); MEAN CORPUSCULAR HGB CONC 34.2 g/dl (32-36); MEAN PLATELET VOLUME 10.3 fl (7.4-10.4); MONO % 5.5 % (0-9); PLATELET COUNT 251 K/uL (130-400); RED BLOOD COUNT 4.21 M/uL (4.40-5.70); RED CELL DISTRIBUTION WIDTH 12.3 % (11.5-14.5); WHITE BLOOD COUNT W/O DIFF 6.8 K/uL (4.2-12.2)
[2017-12-16 15:44] LABS: BLOOD UREA NITROGEN 8 mg/dL (6-20); CREATININE 0.7 mg/dL (0.7-1.2); EST GLOMERULAR FILTRATION RATE > 60 mL/min
[2017-12-16 15:45] LABS: TOTAL PROTEIN 7.2 g/dL (6.6-8.7)
[2017-12-16 15:47] LABS: GLUCOSE,RANDOM 90 mg/dL (74-109)
[2017-12-16 15:49] LABS: ALBUMIN 4.7 g/dL (4.0-5.0); ALKALINE PHOSPHATASE 67 U/L (40-129); ALT/SGPT 20 U/L (<41); AST/SGOT 16 U/L (10.0-50.0); LIPASE 26 U/L (13-60)
[2017-12-16 15:50] LABS: BILIRUBIN,DIRECT < 0.2 mg/dL (0-0.3)
[2017-12-16] MEDS ORDERED: KETOROLAC 30 MG/ML VIAL IVP ONE (15:55)
[2017-12-16] MEDS ORDERED: HYDROMORPHONE HCL 2 MG/ML VIAL IVP ONE (16:23)
[2017-12-16 16:28] LABS: URINE APPEARANCE SL CLOUDY; URINE BILIRUBIN NEGATIVE (NEGATIVE); URINE BLOOD NEGATIVE (NEGATIVE); URINE COLOR YELLOW; URINE GLUCOSE (UA) NEGATIVE (NEGATIVE); URINE KETONE NEGATIVE (NEGATIVE); URINE LEUKOCYTE ESTERASE NEGATIVE (NEGATIVE); URINE NITRITE NEGATIVE (NEGATIVE); URINE PROTEIN NEGATIVE (NEGATIVE); URINE UROBILINOGEN 0.2 E.U./dL (0.20 - 1.00)
[2017-12-16] MEDS ORDERED: MAGNESIUM HYDROXIDE/AL HYDROX 30 ML, LIDOCAINE VISC 2% 15ML 15 ML PO ONE ×2 (16:42)
--- NOTE | 2017-12-18 10:10 | CT SCAN REPORT ---
EXAM: CT OF THE ABDOMEN AND PELVIS HISTORY: ABDOMINAL PAIN. TECHNIQUE: Sequential axial images were obtained from the diaphragms through the ischiorectal fossa after intravenous administration of 100 ml of Omnipaque 300 contrast material. FINDINGS: The visualized lung bases appear normal. The liver appears homogeneous. There is mild periportal edema. This is a nonspecific finding. There is likely a fold present within the gallbladder. No ductal dilatation. The pancreas appears normal. The spleen appears normal. The adrenal glands and kidneys appear normal. No gross abnormalities within the stomach. The small bowel appears grossly unremarkable. The colon appears normal. The appendix is not definitively identified. There are, however, no secondary findings suggestive of acute appendicitis. The urinary bladder appears normal. IMPRESSION: NONSPECIFIC PERIPORTAL EDEMA. THERE IS A FOLD PRESENT WITHIN THE GALLBLADDER. NO DUCTAL DILATATION. NO GROSS ABNORMALITIES WITHIN THE STOMACH. JOB NUMBER: [id number] [facility]
== END 2017-12-16 18:22 | disposition home or self-care (01) ==
LOC: ER 14:44
DX: G89.29 Other chronic pain (principal); R10.13 Epigastric pain
CPT/HCPCS: 74177; 80048; 80076; 81003; 83690; 85025; 86140; 96365; 96375; 99284; J1885; J2405; J3490; J7030

== ENCOUNTER 2018-08-24 07:04 | Emergency (ER) | payer BC ==
[2018-08-24] MEDS ORDERED: THROMBIN/GELATIN FOAM HEMOSTAT (THROMBI-GEL) TP ONE (07:13)
[2018-08-24] MEDS ORDERED: Diph,Pert(Acell),Tet Vac 0.5 ML SYR IM ONE (07:14)
--- NOTE | 2018-08-24 07:20 | Emergency Department Record ---
History of Present Illness - General Chief Complaint: Laceration(s) Stated Complaint: FINGER LAC Time Seen by Provider: 08/24/18 07:13 Source: Patient Mode of Arrival: Ambulatory Limitations: No limitations - History of Present Illness Initial Commments: 23 male presents with an injury to his right index finger. He injured it opening a metal can of tuna fish. His tetanus is not up to date. He avulsed tissue on the side of the finger. No loss of ROM. No numbness or tingling. He cleaned and dressed the wound but it continued to bleed. No other injuries. Onset/Timin -: Minutes(s) Extremity Location: Right: Hand Place: Home Context: Accidental Associated Symptoms: None Treatments Prior to Arrival: Bandage - [place] Coma Scale Eye Response: (4) Open spontaneously Motor Response: (6) Obeys commands Verbal Response: (5) Oriented [place] Total: 15 - Related Data Patient Tetanus UTD (within 5 yrs): No Previous Rx's Medication Instructions Recorded Omeprazole 40 mg PO BID #14 capsule. 12/16/17 Allergies Allergy/AdvReac Type Severity Reaction Status Date / Time No Known Drug Allergies Allergy Unknown Verified 08/24/18 07:11 [NO KNOWN DRUG ALLERGIES] gluten Allergy hives Verified 08/24/18 07:11 nut - unspecified Allergy hives Verified 08/24/18 07:11 soy Allergy hives Verified 08/24/18 07:11 Travel Screening - Travel/Exposure Within Last 30 Days Have you traveled within the last 30 days?: No - Travel/Exposure Within Last Year Have you traveled outside the [place] in the last year?: No - Additonal Travel Details Have you been exposed to anyone with a communicable illness?: No - Travel Symptoms Symptom Screening: None Review of Systems Constitutional: Denies: Chills, Fever, Malaise, Weakness Eyes: Denies: Eye discharge ENT: Denies: Congestion, Throat pain Respiratory: Denies: Cough Cardiovascular: Denies: Syncope Endocrine: Denies: Fatigue Gastrointestinal: Denies: Diarrhea, Nausea, Vomiting Genitourinary: Denies: Dysuria Musculoskeletal: Denies: Arthralgia, Myalgia Skin: Reports: Other (Avulsion). Denies: Bruising, Change in color, Rash Neurological: Denies: Headache, Numbness, Tingling Psychiatric: Denies: Anxiety Hematological/Lymphatic: Denies: Easy bleeding, Easy bruising Past Medical History - SOCIAL HISTORY Smoking Status: Never smoker Alcohol Use: Occasional Drug Use: Heavy Drug Use Detail:: Marijuana - RESPIRATORY Hx Respiratory Disorders: Yes Hx Asthma: Yes (mostly as child) - CARDIOVASCULAR Hx Cardio Disorders: No Comment:: Bradycardic in 30 to 40's - NEURO Hx Neuro Disorders: Yes - GI Hx GI Disorders: Yes Hx Celiac Disease: Yes (Gluten intolerance) Hx Reflux: Yes Hx Irritable Bowel: Yes - Hx Genitourinary Disorders: No - ENDOCRINE Hx Endocrine Disorders: No - MUSCULOSKELETAL Hx Musculoskeletal Disorders: No - PSYCH Hx Psych Problems: No - HEMATOLOGY/ONCOLOGY Hx Hematology/Oncology Disorders: No Family Medical History Any Significant Family History?: Yes Family Hx Comment (NOT TO BE USED IN PLACE OF ITEMS BELOW): Aunt- due to cerebral aneurysm Hx Cancer: Grandparents Hx Heart Disease: Grandparents Hx HTN: Mother, Grandparents Hx Stroke: Brother/Sister, Grandparents Physical Exam - General General Appearance: Alert, Oriented x3, Cooperative, No acute distress Limitations: No limitations - Head Head exam: Atraumatic, Normal inspection - Eye Eye exam: Normal appearance - ENT ENT exam: Normal exam Ear exam: Normal external inspection Nasal Exam: Normal inspection Mouth exam: Normal external inspection - Neck Neck exam: Normal inspection - Cardiovascular Peripheral Pulses: 2+: Radial (R) - Rectal Rectal exam: Deferred - exam: Deferred - Extremities Extremities exam: Full ROM, Normal capillary refill. negative: Normal inspection, Joint swelling, Tenderness Image of Hand: 1 - 1cm x 3mm avulsion of tissue, superficial, no visible tendon injury. Bleeding stopped - Neurological Neurological exam: Alert, Oriented X3 - Psychiatric Psychiatric exam: Normal affect, Normal mood - Skin Skin exam: Other (avulsion) Course Vital Signs 08/24/18 07:06 Temperature 97.6 F Pulse Rate 71 Respiratory 12 Rate Blood Pressure 126/74 Pulse Ox 100 - Reevaluation(s) Reevaluation #1: Tetanus was updated The wound is an avulsion It is superficial but too broad to suture It will be cleaned and dressed with Thrombigel for healing We discussed home care, follow up as needed with concerns and expectation on the timing of healing 08/24/18 07:19 Disposition Disposition: Discharge Clinical Impression: Avulsion of skin of finger Disposition: Home, Self-Care Condition: (1) Good Instructions: Skin Avulsion (ED) Additional Instructions: Leave the dressing on until tomorrow night soak the medicated pad off at that time Then you may clean the wound daily, dry it, apply a very thin layer of antibiotic ointment and cover Keep covered and protected at work This type of wound can take 1-2 weeks to heal Time of Disposition: 07:27 Quality - Quality Measures Quality Measures: N/A - Blood Pressure Screening Does Patient Have Any of the Following: No Blood Pressure Classification: Pre-Hypertensive BP Reading Systolic Measurement: 126 Diastolic Measurement: 74 Screening for High Blood Pressure: < Pre-Hypertensive BP, F/U Documented > [ G8950] Pre-Hypertensive Follow-up Interventions: Referral to alternative/primary care provider.
== END 2018-08-24 07:45 | disposition home or self-care (01) ==
LOC: ER 07:04
DX: S61.214A Laceration without foreign body of right ring finger without damage to nail, initial encounter (principal); W26.8XXA Contact with other sharp object(s), not elsewhere classified, initial encounter; Y92.009 Unspecified place in unspecified non-institutional (private) residence as the place of occurrence of the external cause
CPT/HCPCS: 90715; 96372; 99283

== ENCOUNTER 2019-02-01 20:00 | Observation (INO) | payer BC ==
[2019-02-01] MEDS ORDERED: 0.9 % SODIUM CHLORIDE 1,000 ML BAG IV ONE (20:17)
[2019-02-01] MEDS ORDERED: ACETAMINOPHEN 1,000 MG/100 ML BTL IVPB ONE (20:17)
[2019-02-01] MEDS ORDERED: ONDANSETRON HCL IV 4 MG/2 ML VIAL IVP ONE (20:17)
--- NOTE | 2019-02-01 20:24 | Emergency Department Record ---
History of Present Illness - General Stated Complaint: ABD PAIN,VOMITTING,DIARRHEA,CHILLS Time Seen by Provider: 02/01/19 20:17 Source: Patient, Family (Mother) Mode of Arrival: Ambulatory Limitations: No limitations - History of Present Illness Initial Comments: 23 yo male presents with nausea, vomiting and diarrhea. No blood in either. The onset started in [place] on Thursday. No known sick contacts. The vomiting and diarrhea have persisted each day. He states his intake has been low. His pain is in the umbilical area and to the left lower today. He reports a long history of intermittent abdominal pain in the past. He has seen GI in the past without a specific diagnosis. He is a daily marijuana user. MD Complaint: Abdominal pain, Other (Nausea, vomiting and diarrhea) -: Days(s) (4) Location: Diffuse, LLQ Radiation: LLQ Migration to: LLQ Severity: Moderate Quality: Aching, Cramping, Sharp, Stabbing Consistency: Constant Improves With: Nothing Worsens With: Eating Context: Other Associated Symptoms: Anorexia, Diarrhea, Vomiting - Related Data Previous Rx's Medication Instructions Recorded Omeprazole 40 mg PO BID #14 capsule. 12/16/17 Hyoscyamine Sulfate [Levsin-Sl] 0.125 mg SL Q8H #12 tab.subl 02/01/19 Ondansetron [Zofran Odt] 4 mg PO NOW #12 tab.rapdis 02/01/19 Allergies Allergy/AdvReac Type Severity Reaction Status Date / Time No Known Drug Allergies Allergy Unknown Verified 08/24/18 07:11 [NO KNOWN DRUG ALLERGIES] gluten Allergy hives Verified 08/24/18 07:11 nut - unspecified Allergy hives Verified 08/24/18 07:11 soy Allergy hives Verified 08/24/18 07:11 Review of Systems Constitutional: Reports: Malaise, Weakness. Denies: Chills, Fever Eyes: Denies: Eye discharge, Eye pain, Vision change ENT: Denies: Congestion Respiratory: Denies: Cough, Dyspnea, Wheezes Cardiovascular: Denies: Chest pain, Palpitations, Syncope Endocrine: Denies: Fatigue Gastrointestinal: Reports: Abdominal pain, Diarrhea, Nausea, Vomiting Genitourinary: Denies: Dysuria, Frequency, Hematuria Musculoskeletal: Denies: Arthralgia, Back pain, Joint swelling, Myalgia Skin: Denies: Bruising, Change in color, Rash Neurological: Denies: Confusion, Headache Psychiatric: Denies: Anxiety Hematological/Lymphatic: Denies: Easy bleeding, Easy bruising Past Medical History - SOCIAL HISTORY Smoking Status: Never smoker Drug Use: Heavy Drug Use Detail:: Marijuana - RESPIRATORY Hx Respiratory Disorders: Yes Hx Asthma: Yes (mostly as child) - CARDIOVASCULAR Hx Cardio Disorders: No Comment:: Bradycardic in 30 to 40's - NEURO Hx Neuro Disorders: Yes - GI Hx GI Disorders: Yes Hx Celiac Disease: Yes (Gluten intolerance) Hx Reflux: Yes Hx Irritable Bowel: Yes - Hx Genitourinary Disorders: No - ENDOCRINE Hx Endocrine Disorders: No - MUSCULOSKELETAL Hx Musculoskeletal Disorders: No - PSYCH Hx Psych Problems: No - HEMATOLOGY/ONCOLOGY Hx Hematology/Oncology Disorders: No Family Medical History Family Hx Comment (NOT TO BE USED IN PLACE OF ITEMS BELOW): Aunt- due to cerebral aneurysm Hx Cancer: Grandparents Hx Heart Disease: Grandparents Hx HTN: Mother, Grandparents Hx Stroke: Brother/Sister, Grandparents Physical Exam - General General Appearance: Alert, Oriented x3, Cooperative, No acute distress Limitations: No limitations - Head Head exam: Atraumatic, Normal inspection - Eye Eye exam: Normal appearance, PERRL. negative: Conjunctival injection, Scleral icterus - ENT ENT exam: Normal exam, Mucous membranes moist Ear exam: Normal external inspection Nasal Exam: Normal inspection Mouth exam: Normal external inspection Teeth exam: Normal inspection Throat exam: Normal inspection - Neck Neck exam: Normal inspection - Respiratory Respiratory exam: negative: Normal lung sounds bilaterally, Rhonchi, Stridor, Wheezes - Cardiovascular Cardiovascular Exam: Regular rate, Normal rhythm, Normal heart sounds - GI/Abdominal GI/Abdominal exam: Soft, Tenderness (soft but tender in the LLQ). negative: Distended, Guarding, Rebound, Rigid - Rectal Rectal exam: Deferred - exam: Deferred - Extremities Extremities exam: Normal inspection. negative: Pedal edema, Tenderness - Back Back exam: Denies: CVA tenderness (R), CVA tenderness (L) - Neurological Neurological exam: Alert, Oriented X3 - Psychiatric Psychiatric exam: Normal affect, Normal mood. negative: Agitated, Anxious - Skin Skin exam: Dry, Intact, Normal color, Warm Course Vital Signs 02/01/19 20:12 Temperature 98.2 F Pulse Rate [ 57 L Pulse Ox Probe] Respiratory 20 Rate Blood Pressure 135/92 [Left Arm] Pulse Ox 100 - Reevaluation(s) Reevaluation #1: 02/01/19 21:10 The CBC is normal The patient's pain is not improved CT scan ordered as well No acute changes on the CMP Lipase is 62 02/01/19 22:[address] scan was reviewed No acute process on the CT scan The pain and nausea continue 02/01/19 23:17 We discussed the results of the tests and questions were answered The patient is doing well and is comfortable with DC. DC vitals were reviewed. We discussed at length reasons to immediately return to the ED as well as close follow up. The patient will call the PCP for close follow up of this ED visit to review this visit and the tests performed He will return if worse, pain or vomiting He will bring stool studies back to the lab if diarrhea returns No diarrhea in the ED He is to call his PCP and GI doctor for close follow up 02/01/19 23:39 The pain and nausea area returning. He will be admitted observation for nausea, abdominal pain. Medical Decision Making - Lab Data Result diagrams: 02/01/19 20:45 02/01/19 20:45 Disposition Disposition: Discharge Clinical Impression: Vomiting and diarrhea Abdominal pain Qualifiers: Abdominal location: unspecified location Qualified Code(s): R10.9 - Unspecified abdominal pain Disposition: Acute Care Hospital Transfer Decision to Admit: Admit from ER Decision to Admit Date: 02/01/19 Decision to Admit Time: 23:40 Condition: (1) Good Instructions: Acute Nausea and Vomiting (ED), Abdominal Pain (ED) Additional Instructions: Review this ER visit and the tests performed with your family doctor Call your doctor for the next available follow up appointment Return to the ER for a recheck if worse, any new concerns or questions Take the prescriptions provided as directed Start with a very bland diet in the morning Bring back a diarrhea sample with the lab slip if diarrhea returns Prescriptions: Hyoscyamine Sulfate [Levsin-Sl] 0.125 mg SL Q8H #12 tab.subl Ondansetron [Zofran Odt] 4 mg PO NOW #12 tab.rapdis Forms: Patient Portal Access Time of Disposition: 23:20 Quality - Quality Measures Quality Measures: N/A - Blood Pressure Screening Does Patient Have Any of the Following: No Blood Pressure Classification: Normal BP Reading Systolic Measurement: 106 Diastolic Measurement: 61 Screening for High Blood Pressure: < Normal BP, F/U Not Required > [G4306]
[2019-02-01 20:54] LABS: ABSOLUTE NEUTROPHIL COUNT 4.08; BASO % 0.6 % (0-6); EOS % 3.8 % (0-6); GRAN % 61.7 % (47-80); HEMATOCRIT 38.8 % (42.0-52.0); HEMOGLOBIN 13.3 gm/dl (14.0-18.0); LYMPH % 26.8 % (16-45); MEAN CELL VOLUME 89.6 fl (81-97); MEAN CORPUSCULAR HEMOGLOBIN 30.7 pg (27-33); MEAN CORPUSCULAR HGB CONC 34.3 g/dl (32-36); MEAN PLATELET VOLUME 10.5 fl (7.4-10.4); MONO % 7.1 % (0-9); PLATELET COUNT 259 K/uL (130-400); RED BLOOD COUNT 4.33 M/uL (4.40-5.70); RED CELL DISTRIBUTION WIDTH 12.4 % (11.5-14.5); WHITE BLOOD COUNT W/O DIFF 6.6 K/uL (4.2-12.2)
[2019-02-01 21:08] LABS: BLOOD UREA NITROGEN 14 mg/dL (6-20)
[2019-02-01 21:09] LABS: CREATININE 0.8 mg/dL (0.7-1.2); EST GLOMERULAR FILTRATION RATE > 60 mL/min; LIPASE 62 U/L (13-60); TOTAL PROTEIN 8.2 g/dL (6.6-8.7)
[2019-02-01] MEDS ORDERED: MORPHINE SULFATE 5 MG/ML VIAL IVP ONE (21:10)
[2019-02-01 21:11] LABS: GLUCOSE,RANDOM 86 mg/dL (74-109)
[2019-02-01 21:14] LABS: ALB/GLOB RATIO 1.7 (1.1-1.8); ALBUMIN 5.2 g/dL (4.0-5.0); ALKALINE PHOSPHATASE 79 U/L (40-129); ALT/SGPT 19 U/L (<41); AST/SGOT 23 U/L (10.0-50.0)
[2019-02-01] MEDS ORDERED: 0.9 % SODIUM CHLORIDE 1000ML 1,000 ML IV ONE (21:37)
[2019-02-01 22:07] LABS: URINE APPEARANCE CLEAR; URINE BILIRUBIN SMALL (NEGATIVE); URINE BLOOD NEGATIVE (NEGATIVE); URINE COLOR YELLOW; URINE GLUCOSE (UA) NEGATIVE (NEGATIVE); URINE KETONE 40 mg/dL (NEGATIVE); URINE LEUKOCYTE ESTERASE NEGATIVE (NEGATIVE); URINE NITRITE NEGATIVE (NEGATIVE); URINE PROTEIN NEGATIVE (NEGATIVE); URINE UROBILINOGEN 0.2 E.U./dL (0.20 - 1.00)
[2019-02-01 22:11] LABS: AMPHETAMINE SCREEN URINE NOT DETECTED; BARBITURATE SCREEN URINE NOT DETECTED; BENZODIAZEPINE SCREEN URINE NOT DETECTED; COCAINE SCREEN URINE NOT DETECTED; METHADONE SCREEN URINE NOT DETECTED; METHAMPHETAMINE SCREEN NOT DETECTED; OPIATE SCREEN URINE NOT DETECTED; OXYCODONE SCREEN URINE NOT DETECTED; PHENCYCLIDINE SCREEN URINE NOT DETECTED; PROPOXYPHENE SCREEN URINE NOT DETECTED; THC SCREEN URINE NOT DETECTED; TRICYCLIC ANTIDEPRESSANT SCRN NOT DETECTED
[2019-02-01] MEDS ORDERED: ONDANSETRON 4 MG ODT TABLET SL ONE (23:17)
[2019-02-01] MEDS ORDERED: HYOSCYAMINE SULFATE ODT 0.125 MG TAB.SUBL SL ONE (23:17)
[2019-02-02] MEDS ORDERED: ONDANSETRON HCL IV 4 MG/2 ML VIAL IVP PRN (01:19)
[2019-02-02] MEDS ORDERED: 0.9 % SODIUM CHLORIDE 1000ML 1,000 ML IV ONE (01:19)
[2019-02-02] MEDS: HYDROMORPHONE HCL 2 MG/ML VIAL IVP PRN ×2 (01:46→06:06)
[2019-02-02] MEDS: KETOROLAC 30 MG/ML VIAL IVP PRN ×2 (05:13→13:06)
[2019-02-02 06:45] LABS: ABSOLUTE NEUTROPHIL COUNT 2.64; BASO % 0.4 % (0-6); EOS % 6.1 % (0-6); GRAN % 49.9 % (47-80); HEMATOCRIT 33.1 % (42.0-52.0); LYMPH % 35.8 % (16-45); MEAN CELL VOLUME 90.2 fl (81-97); MEAN CORPUSCULAR HGB CONC 33.2 g/dl (32-36); MEAN PLATELET VOLUME 10.3 fl (7.4-10.4); MONO % 7.8 % (0-9); PLATELET COUNT 189 K/uL (130-400); RED BLOOD COUNT 3.67 M/uL (4.40-5.70); RED CELL DISTRIBUTION WIDTH 12.3 % (11.5-14.5); WHITE BLOOD COUNT W/O DIFF 5.3 K/uL (4.2-12.2)
[2019-02-02 06:49] LABS: MEAN CORPUSCULAR HEMOGLOBIN 29.9 pg (27-33)
[2019-02-02 07:06] LABS: ALB/GLOB RATIO 1.8 (1.1-1.8); ALKALINE PHOSPHATASE 60 U/L (40-129); ALT/SGPT 14 U/L (<41); AST/SGOT 13 U/L (10.0-50.0); BLOOD UREA NITROGEN 12 mg/dL (6-20); CREATININE 0.7 mg/dL (0.7-1.2); EST GLOMERULAR FILTRATION RATE > 60 mL/min; GLUCOSE,RANDOM 73 mg/dL (74-109); TOTAL PROTEIN 6.2 g/dL (6.6-8.7)
[2019-02-02] MEDS: HYOSCYAMINE SULFATE ODT 0.125 MG TAB.SUBL SL PRN ×2 (09:12→12:05)
--- NOTE | 2019-02-02 09:46 | History & Physical ---
History of Present Illness - Date of Service Date of Service for History & Physical: 02/02/19 - History of Present Illness Admitting Diagnosis: nausea, abdominal pain History of Present Illness: 23 yo male presented to ER for c/o nausea, vomiting, diarrhea, and abd pain. Pt reported in ER, N/V/D starting thursday while in [place], denies blood in vomit or diarrhea. PMH of "gi issues" but no diagnosis of specific issues. 98.2 T, HR 57, BP 135/92, RR 20, 100% RA, 10/10 pain WBC 6.6, Hgb 13.3, Hct 38.8, Plt 259 Na 141, K 3.9, Cl 98, BUN 14, Cr 0.8, GFR>60, Bili 1.10, AST 23, ALT 19, Lipase 62 UA Post for bili and ketones but neg for infection Tox screen neg Abd/pel CT neg Given 1l NS, morphine 5mg, tylenol 1000mg IVPB, and zofran 4mg IVP Pt reported nausea improved with meds and fluids ER provider attempted to d/c pt but pt reported pain returned and pt was admitted for OBS3 02/02/19 Pt resting comfortably in bed, sitting up with no difficulty or assistance. BS x4, no guarding but reported tenderness epigastric and LLQ. Lungs CTA, heart RRR. MMM, a&ox4. Spoke with pt about the potential of this being cyclical vomiting syndrome related to his chronic marijuana use but pt reports "I have heard of that, the ER doctor said that but I do not believe it". Instead, pt reports he believes he had food poisoning from eating out this past weekend in [place]. States he had seafood and other items during the weekend. When asked about symptom timeline, pt reports symptoms starting thursday morning after eating a hamburger that night before. His girlfriend "got sick after a few bites of her burger and stopped eating it". Pt continued to eat, stating meat was cooked med/well and appeared to be pink and not red. Pt does report having drank alcoh ol this weekend and does not regularly drink and has history of feeling ill after alcohol consumption. Continue antinausea medications, IVF until tolerating clear liq and can progress to soft diet. No indications for Dilaudid based on labs and CT, pt has tylenol and levsin available for pain. PCP Jn Méndez Travel Screening - Travel/Exposure Within Last 30 Days Have you traveled within the last 30 days?: Yes Location Detail:: [place] - Travel/Exposure Within Last Year Have you traveled outside the [place] in the last year?: No Location Detail:: [place] - Additonal Travel Details Have you been exposed to anyone with a communicable illness?: No - Travel Symptoms Symptom Screening: Diarrhea, Vomiting, Lack of Appetite Review of Systems Constitutional: Reports: Malaise, Weakness. Denies: Chills, Fever Eyes: Denies: Eye discharge, Eye pain, Vision change ENT: Denies: Congestion Respiratory: Denies: Cough, Dyspnea, Wheezes Cardiovascular: Denies: Chest pain, Palpitations, Syncope Endocrine: Denies: Fatigue Gastrointestinal: Reports: Abdominal pain, Diarrhea, Nausea, Vomiting Genitourinary: Denies: Dysuria, Frequency, Hematuria Musculoskeletal: Denies: Arthralgia, Back pain, Joint swelling, Myalgia Skin: Denies: Bruising, Change in color, Rash Neurological: Denies: Confusion, Headache Psychiatric: Denies: Anxiety Hematological/Lymphatic: Denies: Easy bleeding, Easy bruising Past Medical History - SOCIAL HISTORY Smoking Status: Never smoker Drug Use: Heavy Drug Use Detail:: Marijuana - RESPIRATORY Hx Respiratory Disorders: Yes Hx Asthma: Yes (mostly as child) - CARDIOVASCULAR Hx Cardio Disorders: No Comment:: Bradycardic in 30 to 40's - NEURO Hx Neuro Disorders: Yes - GI Hx GI Disorders: Yes Hx Celiac Disease: Yes (Gluten intolerance) Hx Reflux: Yes Hx Irritable Bowel: Yes - Hx Genitourinary Disorders: No - ENDOCRINE Hx Endocrine Disorders: No - MUSCULOSKELETAL Hx Musculoskeletal Disorders: No - PSYCH Hx Psych Problems: No - HEMATOLOGY/ONCOLOGY Hx Hematology/Oncology Disorders: No Family Medical History Any Significant Family History?: Yes Family Hx Comment (NOT TO BE USED IN PLACE OF ITEMS BELOW): Aunt- due to cerebral aneurysm Hx Cancer: Grandparents Hx Heart Disease: Grandparents Hx HTN: Mother, Grandparents Hx Stroke: Brother/Sister, Grandparents H&P Meds/Allergies - Allergies Allergies: Allergies Allergy/AdvReac Type Severity Reaction Status Date / Time No Known Drug Allergies Allergy Unknown Verified 08/24/18 07:11 [NO KNOWN DRUG ALLERGIES] gluten Allergy hives Verified 08/24/18 07:11 nut - unspecified Allergy hives Verified 08/24/18 07:11 soy Allergy hives Verified 08/24/18 07:11 - Home Medications Previous Rx's Medication Instructions Recorded Omeprazole 40 mg PO BID #14 capsule. 12/16/17 Hyoscyamine Sulfate [Levsin-Sl] 0.125 mg SL Q8H #12 tab.subl 02/01/19 Ondansetron [Zofran Odt] 4 mg PO NOW #12 tab.rapdis 02/01/19 - Active Medications Active Medications: Current Medications Hyoscyamine (Levsin Odt) 0.125 mg SL Q4H PRN PRN Reason: ABDOMINAL PAIN Sodium Chloride () 1,000 mls @ 125 mls/hr IV .Q8H ONE Stop: 02/02/19 09:18 Last Admin: 02/02/19 01:50 Dose: 125 mls/hr Documented by: Ketorolac Tromethamine (Toradol) 15 mg IVP Q8H PRN PRN Reason: ABDOMINAL PAIN Last Admin: 02/02/19 05:13 Dose: 15 mg Documented by: Ondansetron HCl (Zofran) 4 mg IVP Q4H PRN PRN Reason: NAUSEA Physical Exam - Vital Signs Vital Signs: Vital Signs - Last 24 Hrs Temp Pulse Resp BP BP Pulse Ox 02/02/19 01:15 97.6 F 39 L 18 122/65 98 02/02/19 01:10 43 L 20 118/75 100 02/01/19 23:22 40 L 20 106/61 100 02/01/19 22:17 47 L 117/62 97 02/01/19 21:08 91 H 122/72 100 02/01/19 20:41 50 L 127/90 100 02/01/19 20:12 98.2 F 57 L 20 135/92 100 - General General Appearance: Alert, Oriented x3, Cooperative, No acute distress Limitations: No limitations - Head Head exam: Atraumatic, Normal inspection - Eye Eye exam: Normal appearance, PERRL. negative: Conjunctival injection, Scleral icterus - ENT ENT exam: Normal exam, Mucous membranes moist Ear exam: Normal external inspection Nasal Exam: Normal inspection Mouth exam: Normal external inspection Teeth exam: Normal inspection Throat exam: Normal inspection - Neck Neck exam: Normal inspection - Respiratory Respiratory exam: negative: Normal lung sounds bilaterally, Rhonchi, Stridor, Wheezes - Cardiovascular Cardiovascular Exam: Regular rate, Normal rhythm, Normal heart sounds - GI/Abdominal GI/Abdominal exam: Soft, Normal bowel sounds, Tenderness (soft but tender in the LLQ). negative: Distended, Guarding, Rebound, Rigid - Rectal Rectal exam: Deferred - exam: Deferred - Extremities Extremities exam: Normal inspection. negative: Pedal edema, Tenderness - Back Back exam: Denies: CVA tenderness (R), CVA tenderness (L) - Neurological Neurological exam: Alert, Oriented X3 - Psychiatric Psychiatric exam: Normal affect, Normal mood. negative: Agitated, Anxious - Skin Skin exam: Dry, Intact, Normal color, Warm Results - Labs Result Diagrams: 02/02/19 06:35 02/02/19 06:35 Labs Last 24 Hours: Laboratory Results - last 24 hr 02/01/19 02/01/19 02/01/19 20:45 20:45 Unknown WBC 6.6 RBC 4.33 L Hgb 13.3 L Hct 38.8 L MCV 89.6 MCH 30.7 MCHC 34.3 RDW 12.4 Plt Count 259 MPV 10.5 H Gran % 61.7 Lymphocytes % 26.8 Monocytes % 7.1 Eosinophils % 3.8 Basophils % 0.6 Absolute Neutrophils 4.08 Sodium 141 Potassium 3.9 Chloride 98 Carbon Dioxide 27.0 Anion Gap 16.0 BUN 14 Creatinine 0.8 Estimated GFR > 60 Random Glucose 86 Calcium 10.3 H Total Bilirubin 1.10 H AST 23 ALT 19 Alkaline Phosphatase 79 Total Protein 8.2 Albumin 5.2 H Globulin 3.0 Albumin/Globulin Ratio 1.7 Lipase 62 H Urine Color Yellow Urine Appearance Clear Urine pH 6.0 Ur Specific [place] 1.020 Urine Protein Negative Urine Glucose (UA) Negative Urine Ketones 40 mg/dl H Urine Blood Negative Urine Nitrite Negative Urine Bilirubin Small H Urine Urobilinogen 0.2 Ur Leukocyte Esterase Negative Urine Opiates Screen Ur Oxycodone Screen Urine Methadone Screen Ur Propoxyphene Screen Ur Barbituates Screen Ur Tricyclics Screen Ur Phencyclidine Scrn Ur Amphetamine Screen U Methamphetamines Scrn U Benzodiazepines Scrn Urine Cocaine Screen Urine Cannabis Screen 02/01/19 02/02/19 02/02/19 Unknown 06:35 06:35 WBC 5.3 RBC 3.67 L Hgb 11.0 L Hct 33.1 L MCV 90.2 MCH 29.9 MCHC 33.2 RDW 12.3 Plt Count 189 MPV 10.3 Gran % 49.9 Lymphocytes % 35.8 Monocytes % 7.8 Eosinophils % 6.1 H Basophils % 0.4 Absolute Neutrophils 2.64 Sodium 142 Potassium 3.8 Chloride 104 Carbon Dioxide 25.0 Anion Gap 13.0 BUN 12 Creatinine 0.7 Estimated GFR > 60 Random Glucose 73 L Calcium 9.1 Total Bilirubin 0.80 AST 13 ALT 14 Alkaline Phosphatase 60 Total Protein 6.2 L Albumin 4.0 Globulin 2.2 Albumin/Globulin Ratio 1.8 Lipase Urine Color Urine Appearance Urine pH Ur Specific [place] Urine Protein Urine Glucose (UA) Urine Ketones Urine Blood Urine Nitrite Urine Bilirubin Urine Urobilinogen Ur Leukocyte Esterase Urine Opiates Screen Not detected Ur Oxycodone Screen Not detected Urine Methadone Screen Not detected Ur Propoxyphene Screen Not detected Ur Barbituates Screen Not detected Ur Tricyclics Screen Not detected Ur Phencyclidine Scrn Not detected Ur Amphetamine Screen Not detected U Methamphetamines Scrn Not detected U Benzodiazepines Scrn Not detected Urine Cocaine Screen Not detected Urine Cannabis Screen Not detected 02/02/19 06:35 WBC RBC Hgb Hct MCV MCH MCHC RDW Plt Count MPV Gran % Lymphocytes % Monocytes % Eosinophils % Basophils % Absolute Neutrophils Sodium Potassium Chloride Carbon Dioxide Anion Gap BUN Creatinine Estimated GFR Random Glucose Calcium Total Bilirubin AST ALT Alkaline Phosphatase Total Protein Albumin Globulin Albumin/Globulin Ratio Lipase 109 H Urine Color Urine Appearance Urine pH Ur Specific [place] Urine Protein Urine Glucose (UA) Urine Ketones Urine Blood Urine Nitrite Urine Bilirubin Urine Urobilinogen Ur Leukocyte Esterase Urine Opiates Screen Ur Oxycodone Screen Urine Methadone Screen Ur Propoxyphene Screen Ur Barbituates Screen Ur Tricyclics Screen Ur Phencyclidine Scrn Ur Amphetamine Screen U Methamphetamines Scrn U Benzodiazepines Scrn Urine Cocaine Screen Urine Cannabis Screen - Imaging and Cardiology CT scan - abdomen Status: Report reviewed (vrad report reviewed negative) VTE H&P Assessment - Risk for VTE Risk for VTE: Yes Risk Level: Low Risk Assessment Date: 02/02/19 Risk Assessment Time: 09:47 VTE Orders Placed or Will Be Placed: No VTE Reason for No Prophylaxis: Not Indicated Plan - Detailed Diagnosis and Plan (1) Nausea Current Visit: Yes Status: Acute Base Code: R11.0 - NAUSEA Comment: 10/2/19 -pt has attempted clear liquids this AM and tolerated fair, nausea is returing -continue IVF and nausea meds until PO intak has returned to fair (2) Abdominal pain Current Visit: Yes Status: Acute Qualifiers: Abdominal location: unspecified location Qualified Code(s): R10.9 - Unspecified abdominal pain Base Code: R10.9 - UNSPECIFIED ABDOMINAL PAIN Comment: 02/02/19 -CT negative, labs negative other than slight elevation in lipase (pt reports ETOH use this weekend) -HFTs neg -dilaudid not indicated, using levsin, toradol, tylenol for pain control -D/C when nauesa controlled and pt taking PO well (3) Vomiting and diarrhea Current Visit: Yes Status: Acute Base Code: R11.10 - VOMITING, UNSPECIFIED; R19.7 - DIARRHEA, UNSPECIFIED Comment: 02/02/19 -pt reports vomiting and diarrhea but has not had any production since presenting to ER last night -timeline for symptoms is inconsistent (4) Full code status Current Visit: Yes Status: Acute Base Code: Z78.9 - OTHER SPECIFIED HEALTH STATUS Comment: 02/02/19 -Full code
--- NOTE | 2019-02-02 12:14 | Discharge Summary ---
Providers Discharge Summary Date: 02/02/19 Date of admission: 02/02/19 01:12 Expected Date of Discharge: 02/02/19 Attending physician: FIONA MINAYA Primary care physician: SAMINA HADDAD D.O. Physical Exam - Vital Signs Vital Signs: Vital Signs - Last 24 Hrs Temp Pulse Resp BP BP Pulse Ox 02/02/19 09:19 97.6 F 80 20 124/76 95 02/02/19 01:15 97.6 F 39 L 18 122/65 98 02/02/19 01:10 43 L 20 118/75 100 02/01/19 23:22 40 L 20 106/61 100 02/01/19 22:17 47 L 117/62 97 02/01/19 21:08 91 H 122/72 100 02/01/19 20:41 50 L 127/90 100 02/01/19 20:12 98.2 F 57 L 20 135/92 100 - General General Appearance: Alert, Oriented x3, Cooperative, No acute distress Limitations: No limitations - Head Head exam: Atraumatic, Normal inspection - Eye Eye exam: Normal appearance, PERRL. negative: Conjunctival injection, Scleral icterus - ENT ENT exam: Normal exam, Mucous membranes moist Ear exam: Normal external inspection Nasal Exam: Normal inspection Mouth exam: Normal external inspection Teeth exam: Normal inspection Throat exam: Normal inspection - Neck Neck exam: Normal inspection - Respiratory Respiratory exam: negative: Normal lung sounds bilaterally, Rhonchi, Stridor, Wheezes - Cardiovascular Cardiovascular Exam: Regular rate, Normal rhythm, Normal heart sounds - GI/Abdominal GI/Abdominal exam: Soft, Normal bowel sounds, Tenderness (soft but tender in the LLQ). negative: Distended, Guarding, Rebound, Rigid - Rectal Rectal exam: Deferred - exam: Deferred - Extremities Extremities exam: Normal inspection. negative: Pedal edema, Tenderness - Back Back exam: Denies: CVA tenderness (R), CVA tenderness (L) - Neurological Neurological exam: Alert, Oriented X3 - Psychiatric Psychiatric exam: Normal affect, Normal mood. negative: Agitated, Anxious - Skin Skin exam: Dry, Intact, Normal color, Warm Hospitalization - Hospitalization Admission Diagnosis: nausea, abdominal pain - Problem List/Discharge Diagnosis (1) Nausea Current Visit: Yes Status: Acute Base Code: R11.0 - NAUSEA Comment: 02/02/19 -pt has attempted clear liquids this AM and tolerated fair, nausea is returing -continue IVF and nausea meds until PO intak has returned to fair (2) Abdominal pain Current Visit: Yes Status: Acute Discharge Diagnosis: Abdominal location: unspecified location Qualified Code(s): R10.9 - Unspecified abdominal pain Base Code: R10.9 - UNSPECIFIED ABDOMINAL PAIN Comment: 02/02/19 -CT negative, labs negative other than slight elevation in lipase (pt reports ETOH use this weekend) -HFTs neg -dilaudid not indicated, using levsin, toradol, tylenol for pain control -D/C when nauesa controlled and pt taking PO well (3) Vomiting and diarrhea Current Visit: Yes Status: Acute Base Code: R11.10 - VOMITING, UNSPECIFIED; R19.7 - DIARRHEA, UNSPECIFIED Comment: 02/02/19 -pt reports vomiting and diarrhea but has not had any production since presenting to ER last night -timeline for symptoms is inconsistent later in the day -pt has tolerated yogurt and some clear liq, reports ready to go home, additionally, pt and mother report pt has potential issues with marijuana use and the cyclical vomiting syndrome "research" she completed does appear to be similar to his complaints with additional concerns for inappropriate grief since the loss of his brother and undiagnosised issues with abd compliants (4) Full code status Current Visit: Yes Status: Acute Base Code: Z78.9 - OTHER SPECIFIED HEALTH STATUS Comment: 02/02/19 -Full code - Hospitalization Course Disposition: Home, Self-Care Hospital Course: 23 yo male presented to ER for c/o nausea, vomiting, diarrhea, and abd pain. Pt reported in ER, N/V/D starting thursday while in [place], denies blood in vomit or diarrhea. PMH of "gi issues" but no diagnosis of specific issues. 98.2 T, HR 57, BP 135/92, RR 20, 100% RA, 10/10 pain WBC 6.6, Hgb 13.3, Hct 38.8, Plt 259 Na 141, K 3.9, Cl 98, BUN 14, Cr 0.8, GFR>60, Bili 1.10, AST 23, ALT 19, Lipase 62 UA Post for bili and ketones but neg for infection Tox screen neg Abd/pel CT neg Given 1l NS, morphine 5mg, tylenol 1000mg IVPB, and zofran 4mg IVP Pt reported nausea improved with meds and fluids ER provider attempted to d/c pt but pt reported pain returned and pt was admitted for OBS3 02/02/19 Pt resting comfortably in bed, sitting up with no difficulty or assistance. BS x4, no guarding but reported tenderness epigastric and LLQ. Lungs CTA, heart RRR. MMM, a&ox4. Spoke with pt about the potential of this being cyclical vomiting syndrome related to his chronic marijuana use but pt reports "I have heard of that, the ER doctor said that but I do not believe it". Instead, pt reports he believes he had food poisoning from eating out this past weekend in [place]. States he had seafood and other items during the weekend. When asked about symptom timeline, pt reports symptoms starting thursday morning after eating a hamburger that night before. His girlfriend "got sick after a few bites of her burger and stopped eating it". Pt continued to eat, stating meat was cooked med/well and appeared to be pink and not red. Pt does report having drank alcohol this weekend and does not regularly drink and has history of feeling ill after alcohol consumption. Continue antinausea medications, IVF until tolerating clear liq and can progress to soft diet. No indications for Dilaudid based on labs and CT, pt has tylenol and levsin available for pain. PCP Jn Haddad Procedures: Imaging and X-Rays 02/01/19 21:09 ABDOMEN/PELVIS W CONTRAST [CT] Stat Abnormal Labs: Abnormal Lab Results 02/01/19 02/01/19 02/01/19 Range/Units 20:45 20:45 Unknown RBC 4.33 L (4.40-5.70) M/uL Hgb 13.3 L (14.0-18.0) gm/dl Hct 38.8 L (42.0-52.0) % MPV 10.5 H (7.4-10.4) fl Eosinophils % (0-6) % Random Glucose (74-109) mg/dL Calcium 10.3 H (8.6-10.0) mg/dL Total Bilirubin 1.10 H (0.2-1.0) mg/dL Total Protein (6.6-8.7) g/dL Albumin 5.2 H (4.0-5.0) g/dL Lipase 62 H (13-60) U/L Urine Ketones 40 mg/dl H (NEGATIVE) Urine Bilirubin Small H (NEGATIVE) 02/02/19 02/02/19 02/02/19 Range/Units 06:35 06:35 06:35 RBC 3.67 L (4.40-5.70) M/uL Hgb 11.0 L (14.0-18.0) gm/dl Hct 33.1 L (42.0-52.0) % MPV (7.4-10.4) fl Eosinophils % 6.1 H (0-6) % Random Glucose 73 L (74-109) mg/dL Calcium (8.6-10.0) mg/dL Total Bilirubin (0.2-1.0) mg/dL Total Protein 6.2 L (6.6-8.7) g/dL Albumin (4.0-5.0) g/dL Lipase 109 H (13-60) U/L Urine Ketones (NEGATIVE) Urine Bilirubin (NEGATIVE) Condition at Discharge: (2) Stable Discharge Medications - Discharge Medications Prescriptions: Hyoscyamine Sulfate [Levsin Odt] 0.125 mg SL Q4H PRN 4 Days #24 tab.subl PRN Reason: Abdominal Pain Hyoscyamine Sulfate [Levsin-Sl] 0.125 mg SL Q8H #12 tab.subl Ondansetron [Zofran Odt] 4 mg PO NOW #12 tab.rapdis Ondansetron [Zofran Odt] 4 mg PO Q8H 4 Days #12 tab.rapdis Home Medications: Ambulatory Orders Fluticasone Propionate [Flovent Hfa] 1 puff INH ASDIR 12/16/17 [Last Taken 02/01/19] Omeprazole 40 mg PO BID #14 capsule. 12/16/17 [Last Taken 01/19/19] Hyoscyamine Sulfate [Levsin-Sl] 0.125 mg SL Q8H #12 tab.subl 02/01/19 [Last Taken Unknown] Ondansetron [Zofran Odt] 4 mg PO NOW #12 tab.rapdis 02/01/19 [Last Taken Unknown] Hyoscyamine Sulfate [Levsin Odt] 0.125 mg SL Q4H PRN 4 Days #24 tab.subl 02/02/19 [Last Taken Unknown] Ondansetron [Zofran Odt] 4 mg PO Q8H 4 Days #12 tab.rapdis 02/02/19 [Last Taken Unknown] Discharge Plan - Discharge Instructions Activity at Discharge: Increase Activity as Tolerated Diet at Discharge: Advance to Usual Diet Instructions: Acute Nausea and Vomiting (ED), Abdominal Pain (ED) Additional Instructions: Review this ER visit and the tests performed with your family doctor Call your doctor for the next available follow up appointment Return to the ER for a recheck if worse, any new concerns or questions Take the prescriptions provided as directed Start with a very bland diet in the morning Bring back a diarrhea sample with the lab slip if diarrhea returns Quality Measures - Quality Measures Quality Measures: Documentation of Current Medications in Medical Record, Screening for High Blood Pressure and F/U Documented - Current Medications Quality Measure: Measure #130: Documentation of Current Medications Documentation of Current Medications: <Current Medications Documented/Reviewed> [G8427] - Blood Pressure Screening Quality Measure: Screening for High Blood Pressure and Follow-Up Documented Does Patient Have Any of the Following: No Blood Pressure Classification: Pre-Hypertensive BP Reading Systolic Measurement: 124 Diastolic Measurement: 76 Screening for High Blood Pressure: < Pre-Hypertensive BP, F/U Documented > [G8950] Pre-Hypertensive Follow-up Interventions: Referral to alternative/primary care provider. - Elder Abuse Suspicion Index EASI Reference Information: Luis Fernando RAYO, Monty C, Lola D, Zhane Orozco.Development and validation of a tool to assist physicians identification of elder abuse: The Elder Abuse Suspicion Index (EASI ). Journal of Elder Abuse and Neglect, 2008; 20 (3): 276-300.
[2019-02-02] MEDS ORDERED: ACETAMINOPHEN 325 MG TAB PO PRN (12:44)
--- NOTE | 2019-02-03 07:31 | CT SCAN REPORT ---
EXAM: CT SCAN OF THE ABDOMEN AND PELVIS HISTORY: PATIENT HAS ABDOMINAL PAIN, DIARRHEA, AND LEFT LOWER QUADRANT PAIN. TECHNIQUE: Serial axial CT scan of the abdomen and pelvis was performed at 2.5 mm intervals from the dome of the diaphragm down to the pubic symphysis following the intravenous administration of 100 ml of Omnipaque 300. Comparison: CT scan of the abdomen and pelvis dated 12/16/17 is provided. FINDINGS: The lung windows of the lung bases demonstrate no CT evidence of a focal infiltrate or pleural effusion. The visualized heart size and contour is within normal limits. The liver, spleen, pancreas, and bilateral adrenal glands are unremarkable. The gallbladder demonstrates questionable gallbladder sludge without CT evidence of cholecystitis. There is no CT evidence of hydronephrosis or hydroureter. No renal or ureteral calculi are noted. The contour, caliber, and flow within the abdominal aorta is within normal limits. There is no CT evidence of retroperitoneal, pelvic, or inguinal lymphadenopathy. The visualized bowel gas pattern demonstrates dilatation of the third segment of the duodenum and second segment of the duodenum to approximately 3.5 cm in diameter. This appearance is maintained on the delayed phase images as well. On the prior CT scan, there was also mild distention of the proximal third and second segments of the duodenum, however, not as apparent as on the current examination. The distance between the superior mesenteric artery and the aorta is approximately 5 mm (normal being approximately 10-28 mm). These findings suggest SMA syndrome. Clinical correlation is recommended. There is no CT evidence of free intraperitoneal fluid or free intraperitoneal air. The urinary bladder is unremarkable. Bone windows demonstrate no CT evidence of a fracture or dislocation of the visualized osseous structures. There is mild levoconvex scoliosis of the lumbar spine. 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 CLINICAL CORRELATION TO THE PATIENT'S SYMPTOMS IS RECOMMENDED. THERE IS NO OTHER CT EVIDENCE OF AN ACUTE INTRAABDOMINAL PROCESS. JOB NUMBER: [id number] [facility]
== END 2019-02-02 13:55 | disposition home or self-care (01) ==
LOC: ER 20:00 → MEDSURG 02-02 01:12
PROVIDERS: ADMIT Internal Medicine; ATTEND Internal Medicine
DX: R10.9 Unspecified abdominal pain (principal); R11.2 Nausea with vomiting, unspecified; R19.7 Diarrhea, unspecified; R68.83 Chills (without fever); K90.0 Celiac disease; K21.9 Gastro-esophageal reflux disease without esophagitis; K58.9 Irritable bowel syndrome, unspecified
CPT/HCPCS: 74177; 80053; 80305; 81003; 83690; 85025; 96361; 96365; 96366; 96374; 96375; 99220; 99285; J1885; J2405; J7030